=== PATIENT | male | born 1935 | race Caucasian/White ===

== ENCOUNTER 2020-05-19 05:44 | Outpatient (RCR) | payer MEDICARE ==
[~2020-05-19] VITALS: Ht 180 cm; Wt 80.0 kg
[2020-05-19] MEDS ORDERED: TRM50T PO (11:42)
[2020-05-19] MEDS ORDERED: ATEN25TA PO (11:42)
[2020-05-19] MEDS ORDERED: HYDR25TA4 PO (11:42)
[2020-05-19] MEDS ORDERED: LATA7.5D OP (11:42)
[2020-05-19] MEDS ORDERED: ASPI-1238 PO (11:42)
== END 2020-05-19 16:19 | disposition home or self-care (01) ==
LOC: PREOP 05:44
PROVIDERS: ATTEND Surgery
DX: Z01.818 Encounter for other preprocedural examination (principal); Z86.010 Personal history of colon polyps

== ENCOUNTER → 2020-05-22 | Outpatient (CLI) | payer MEDICARE ==
[~2020-05-22] MED LIST: ASPI-1238 PO; ATEN25TA PO; HYDR25TA4 PO; LATA7.5D OP; TRM50T PO
== END ==
LOC: LAB FS 09:38
PROVIDERS: ATTEND Surgery
DX: Z01.812 Encounter for preprocedural laboratory examination (principal); Z20.822 Contact with and (suspected) exposure to COVID-19; Z85.038 Personal history of other malignant neoplasm of large intestine
CPT/HCPCS: 87635

== ENCOUNTER 2020-05-26 07:46 | Day surgery (SDC) | payer MEDICARE ==
[~2020-05-26] VITALS: Ht 180 cm; Wt 80.0 kg
[2020-05-26] MEDS ORDERED: LACTATED RINGERS 1,000 ML IV ONE ×2 (07:52→10:30)
[2020-05-26 08:10] VITALS: BP 160/81
--- NOTE | 2020-05-26 08:20 | Progress Note-Pre Operative ---
Pre-Operative Progress Note H&P Reviewed The H&P was reviewed, patient examined and no changes noted. Time Seen by Provider: 08:15 Date H&P Reviewed: May 26, 2020 Time H&P Reviewed: 08:16 Pre-Operative Diagnosis: Hx of polyps 2017, Hx colon CA 2007 DEAN BASILIO DO May 26, 2020 08:20
[2020-05-26] MEDS ORDERED: PROPOFOL INJECTION 50 ML IV ONE (09:26)
[2020-05-26 10:00] VITALS: BP 141/72
--- NOTE | 2020-05-26 10:04 | Progress Note-Post Operative ---
Post-Operative Progess Note Surgeon (s)/Credit Reporter (s) Surgeon DEAN BASILIO DO Credit Reporter: JOLIE Calzada Pre-Operative Diagnosis Hx of polyps 2017, Hx colon CA 2007 Post-Operative Diagnosis polyps diverticula int hemorrhoids Procedure & Operative Findings Date of Procedure 05/26/20 Procedure Performed/Findings Colon with snare Anesthesia Type IV sedation by TRAINING SPECIALIST Estimated Blood Loss Estimated blood loss (mL): scant Specimens/Packing Specimens Removed sigmoid polyp DEAN BASILIO DO May 26, 2020 10:04
[2020-05-26 10:05] VITALS: BP 140/75
--- NOTE | 2020-05-26 10:05 | Endoscopy Discharge Instruct ---
Endo Procedure/Findings Findings 1.: Polyp 2.: Diverticulosis 3.: Internal Hemorrhoids Discharge Instructions - Activity: You might feel a little sleepy until tomorrow. This is due to the medicine you received to relax you. Until tomorrow, you should: NOT drive a car, operate machinery or power tools. NOT drink any alcoholic beverages. NOT make any important decisions or sign importortant papers. Do not return to work until tomorrow, unless otherwise instructed. Resume previous activities tomorrow. Diet: Start by taking liquids. If you tolerate liquids, advance to solid food. 1.: Colonscopy in 5 years Notify Physician - If you experience excessive bleeding, unusual abdominal pain, fever, or chest pain, contact your doctor immediately. DEAN BASILIO DO May 26, 2020 10:05
[2020-05-26 10:15] VITALS: BP 140/75
[2020-05-26 10:41] VITALS: BP 140/75
--- NOTE | 2020-05-26 11:53 | Anesthesia-General Post-Op ---
MAC Patient Condition Mental Status/LOC: Same as Preop Cardiovascular: Satisfactory Nausea/Vomiting: Absent Respiratory: Satisfactory Pain: Controlled Complications: Absent Post Op Complications Complications None Follow Up Care/Instructions Patient Instructions None needed. Anesthesiology Discharge Order Discharge Order Patient is doing well, no complaints, stable vital signs, no apparent adverse anesthesia problems. No complications reported per nursing. DONNA RAMON CRNA May 26, 2020 11:53
--- NOTE | 2020-05-26 23:21 | OPERATIVE REPORT ---
DATE OF SERVICE: PREOPERATIVE DIAGNOSES: History of colon polyps in 2018 and history of colon cancer in 2008, has not had a colonoscopy since 2018. He was not sure how many polyps or what type was taken out. POSTOPERATIVE DIAGNOSES: Polyps and internal hemorrhoids. PROCEDURE: Colonoscopy with snare polypectomy. SURGEON: Festus Boone DO MACHINE HOOP MAKER: Aaron Alfred MS3. ANESTHESIA: IV sedation by the MOHEL. SPECIMEN: Polyp from the sigmoid colon. BLOOD LOSS: Scant. FLUIDS: Per anesthesia. POSTOPERATIVE CONDITION: Stable. INDICATION FOR PROCEDURE: The patient is an 84-year-old male, who had a history of colon cancer in 2008 and had polyps, most recently in 2018. He was not sure how many or what type removed. He needed a repeat colonoscopy. FINDINGS: The patient had a polyp in the sigmoid colon, but no other obvious pathology. PROCEDURE NOTE: After informed consent was obtained, the patient was brought to the endoscopy suite, placed in bed in left lateral decubitus position. He was administered IV sedation by the MOHEL ,who then monitored his vitals the entire time, heart rate, blood pressure and pulse ox and the scope was inserted, pushed all the way into about 120 cm, able to get to what looked like probable transverse colon and see the anastomosis, took a picture and then slowly withdrew the scope insufflating to look circumferentially at the hurst looking in the transverse colon, then down to the splenic flexure, into the descending colon down in the sigmoid. In the sigmoid, saw small polyp. Elected to do a snare polypectomy of this and then continued down in the rectal vault. Retroflexed in rectal vault, saw some minimal internal hemorrhoids, removed the scope. The patient tolerated the procedure, recovered in endoscopy suite. Job ID: [id number] DocumentID: [id number] Dictated Date: 05/26/2020 14:47:39 Classroom Teacher Date: 05/26/2020 23:20:16 Dictated By: FESTUS BOONE DO
== END 2020-05-26 10:52 | disposition home or self-care (01) ==
LOC: ENDO 07:46
PROVIDERS: ATTEND Surgery
DX: D12.5 Benign neoplasm of sigmoid colon (principal); K64.8 Other hemorrhoids; I10 Essential (primary) hypertension; I25.10 Atherosclerotic heart disease of native coronary artery without angina pectoris; M19.90 Unspecified osteoarthritis, unspecified site; Z79.01 Long term (current) use of anticoagulants; Z79.82 Long term (current) use of aspirin; Z79.899 Other long term (current) drug therapy; Z86.010 Personal history of colon polyps; Z85.038 Personal history of other malignant neoplasm of large intestine; Z87.891 Personal history of nicotine dependence
CPT/HCPCS: 88305

== ENCOUNTER 2022-03-12 16:24 | Emergency (ER) | payer MEDICARE ==
--- NOTE | 2022-03-12 16:34 | ED Cough/URI ---
General Stated Complaint: COLD LIKE SYMPTOMS History of Present Illness Date Seen by Provider: Mar 12, 2022 Time Seen by Provider: 16:31 Initial Comments 86-year-old male brought in by EMS. EMS got called out because the family called [facility] to do a welfare check on him. Patient called his family and told he has had felt good for about 3 days. Patient complains of like cough congestion sore throat. No complaints of a fever. He complains of some chronic sciatica nerve pain that he takes hydrocodone for. Patient has no reports of shortness of breath, nausea or vomiting. Patient has poor hearing so is HPI is somewhat limited along with his review of systems Allergies and Home Medications Allergies Coded Allergies: No Known Drug Allergies (Unverified , 05/26/20) Patient Home Medication List Home Medication List Reviewed: Yes Aspirin (Aspirin EC) 81 Mg Tablet.dr, 81 MG PO DAILY, (Reported) Entered as Reported by: DOM VILLELA on 05/19/20 1142 Atenolol (Atenolol) 25 Mg Tablet, 12.5 MG PO DAILY, (Reported) Entered as Reported by: DOM VILLELA on 05/19/20 1142 Hydrochlorothiazide (Hydrochlorothiazide) 25 Mg Tablet, 12.5 MG PO DAILY, (Reported) Entered as Reported by: DOM VILLELA on 05/19/20 1142 Latanoprost/Pf (Latanoprost 0.005% Eye Drop) 7.5 Ml Drops, 7.5 ML OP HS, (Reported) Entered as Reported by: DOM VILLELA on 05/19/20 1142 Tramadol HCl (Tramadol HCl) 50 Mg Tablet, 50 MG PO QID PRN for PAIN-MODERATE (5- 7), (Reported) Entered as Reported by: DOM VILLELA on 05/19/20 1142 Review of Systems Review of Systems Constitutional: No fever; malaise EENTM: hearing loss, throat pain Respiratory: cough; No short of breath Cardiovascular: No chest pain, No palpitations Gastrointestinal: No abdominal pain, No nausea, No vomiting Genitourinary: no symptoms reported Musculoskeletal: back pain Skin: no symptoms reported Psychiatric/Neurological: No Symptoms Reported Past Oyohaia-Mlhltg-Oijxlc Hx Seasonal Allergies Seasonal Allergies: No Past Medical History Surgeries: Yes (COLON RESECTION) Gallbladder Respiratory: No Currently Using CPAP: No Heart Attack, Hypertension, Irregular Heartbeat Neurological: No Genitourinary: No Gastrointestinal: Yes Gall Bladder Disease Musculoskeletal: Yes Arthritis Endocrine: No HEENT: Yes (LOST PART OF SIGHT IN RIGHT EYE) Cataract Cancer: Yes Skin, Colon Did You Recieve Any Treatments: Yes What Type of Treatment Did You: Chemotherapy, Surgical Intervention Psychosocial: No Integumentary: No Blood Disorders: No Adverse Reaction/Blood Tranf: No Physical Exam Vital Signs - First Documented 03/12/22 16:40 Temp 37.9 Pulse 103 Resp 18 B/P (MAP) 152/76 (101) Pulse Ox 100 O2 Delivery Room Air Capillary Refill : Height: '" Weight: lbs. oz. kg; 24.69 BMI Method: General Appearance: other (Unkept, disheveled) Neck: full range of motion, supple Respiratory: lungs clear, normal breath sounds Cardiovascular: normal peripheral pulses, regular rate, rhythm Gastrointestinal: non tender, soft Extremities: normal range of motion, normal capillary refill Neurologic/Psychiatric: alert, normal mood/affect, oriented x 3 Skin: normal color, warm/dry Progress/Results/Core Measures Suspected Sepsis SIRS Temperature: Pulse: Respiratory Rate: Laboratory Tests 03/12/22 16:30: White Blood Count 8.7 Blood Pressure / Mean: Laboratory Tests 03/12/22 16:30: Creatinine 1.54H, Platelet Count 184, Total Bilirubin 0.3 Results/Orders Lab Results Laboratory Tests Test 03/12/22 16:30 03/12/22 16:53 Range/Units White Blood Count 8.7 4.3-11.0 10^3/uL Red Blood Count 3.72 L 4.30-5.52 10^6/uL Hemoglobin 11.1 L 13.3-17.7 g/dL Hematocrit 34 L 40-54 % Mean Corpuscular Volume 92 80-99 fL Mean Corpuscular Hemoglobin 30 25-34 pg Mean Corpuscular Hemoglobin Concent 33 32-36 g/dL Red Cell Distribution Width 14.1 10.0-14.5 % Platelet Count 184 130-400 10^3/uL Mean Platelet Volume 10.1 9.0-12.2 fL Immature Granulocyte % (Auto) 1 % Neutrophils (%) (Auto) 77 H 42-75 % Lymphocytes (%) (Auto) 14 12-44 % Monocytes (%) (Auto) 9 0-12 % Eosinophils (%) (Auto) 0 0-10 % Basophils (%) (Auto) 0 0-10 % Neutrophils # (Auto) 6.7 1.8-7.8 10^3/uL Lymphocytes # (Auto) 1.2 1.0-4.0 10^3/uL Monocytes # (Auto) 0.8 0.0-1.0 10^3/uL Eosinophils # (Auto) 0.0 0.0-0.3 10^3/uL Basophils # (Auto) 0.0 0.0-0.1 10^3/uL Immature Granulocyte # (Auto) 0.1 0.0-0.1 10^3/uL Sodium Level 134 L 135-145 MMOL/L Potassium Level 4.0 3.6-5.0 MMOL/L Chloride Level 99 98-107 MMOL/L Carbon Dioxide Level 20 L 21-32 MMOL/L Anion Gap 15 H 5-14 MMOL/L Blood Urea Nitrogen 29 H 7-18 MG/DL Creatinine 1.54 H 0.60-1.30 MG/DL Estimat Glomerular Filtration Rate 43 BUN/Creatinine Ratio 19 Glucose Level 113 H 70-105 MG/DL Calcium Level 9.0 8.5-10.1 MG/DL Corrected Calcium 9.0 8.5-10.1 MG/DL Total Bilirubin 0.3 0.1-1.0 MG/DL Aspartate Amino Transf (AST/SGOT) 24 5-34 U/L Alanine Aminotransferase (ALT/SGPT) 12 0-55 U/L Alkaline Phosphatase 72 40-136 U/L C-Reactive Protein 0.87 H <0.50 MG/DL Total Protein 7.0 6.4-8.2 GM/DL Albumin 4.0 3.2-4.5 GM/DL Influenza Type A (RT-PCR) Not Detected Not Detecte Influenza Type B (RT-PCR) Not Detected Not Detecte SARS-CoV-2 RNA (RT-PCR) Detected H Not Detecte My Orders Orders - ANGELINA AMBROSE DO Cbc With Automated Diff (03/12/22 16:34) Comprehensive Metabolic Panel (03/12/22 16:34) Ua Culture If Indicated (03/12/22 16:34) Influenza A And B By Pcr (03/12/22 16:34) Crp Fs (03/12/22 16:34) Covid 19 Inhouse Test (03/12/22 16:34) Chest Pa/Lat (2 View) (03/12/22 16:34) Lactated Ringers (Lr 1000 Ml Iv Solution (03/12/22 17:10) Vital Signs/I&O 03/12/22 16:40 Temp 37.9 Pulse 103 Resp 18 B/P (MAP) 152/76 (101) Pulse Ox 100 O2 Delivery Room Air Capillary Refill : Progress Note : Progress Note Patient is positive for COVID. Patient's physical exam and vitals are stable. Patient with normal chest x-ray and oxygen is 100%. Patient will be given a prescription for Paxlovid. Encouraged him to drink plenty of fluids. Tylenol ibuprofen as needed for fever and chills. Patient stable and discharged home Departure Impression Primary Impression: COVID-19 Disposition: 01 HOME, SELF-CARE Condition: Stable Departure-Patient Inst. Referrals: VITO GIBSON MD (PCP/Family) Primary Care Physician Patient Instructions: COVID-19 Home Care/Discharge Add. Discharge Instructions: Ibuprofen as needed for body aches and pain, I encourage you to drink plenty of fluids. Return to the ER as needed. Follow-up with your primary care provider Tuesday or Tuesday for recheck of your symptoms Scripts Nirmatrelvir/Ritonavir (Paxlovid 300-100 mg Pack (Eua)) 300 Mg (150 Mg X 2)-100 Mg Tab.ds.pk 1 EACH PO PD, #1 PKG Prov: ANGELINA AMBROSE DO 03/12/22 ANGELINA AMBROSE DO Mar 12, 2022 16:34
[2022-03-12 16:40] LABS: BASOPHILS % (AUTO) 0 % (0-10); EOSINOPHILS % (AUTO) 0 % (0-10); HEMATOCRIT 34 % (40-54); HEMOGLOBIN 11.1 g/dL (13.3-17.7); LYMPHOCYTES # (AUTO) 1.2 10^3/uL (1.0-4.0); LYMPHOCYTES % (AUTO) 14 % (12-44); MEAN CORPUSCULAR HEMOGLOBIN 30 pg (25-34); MEAN CORPUSCULAR HGB CONC 33 g/dL (32-36); MEAN CORPUSCULAR VOLUME 92 fL (80-99); MEAN PLATELET VOLUME 10.1 fL (9.0-12.2); MONOCYTES # (AUTO) 0.8 10^3/uL (0.0-1.0); MONOCYTES % (AUTO) 9 % (0-12); NEUTROPHILS # (AUTO) 6.7 10^3/uL (1.8-7.8); NEUTROPHILS % (AUTO) 77 % (42-75); PLATELET COUNT 184 10^3/uL (130-400); WHITE BLOOD COUNT 8.7 10^3/uL (4.3-11.0)
[2022-03-12 17:01] LABS: BILIRUBIN,TOTAL 0.3 MG/DL (0.1-1.0); CREATININE SERUM 1.54 MG/DL (0.60-1.30)
--- NOTE | 2022-03-12 17:04 | Diagnostic Imaging Report ---
EXAMINATION: Chest 2 view. HISTORY: Cough. COMPARISON: None available. FINDINGS: The lungs are clear without edema or pneumonia. No pleural effusion or pneumothorax. Heart size is normal. There is a calcified left hilar lymph node. IMPRESSION: Clear lungs. Dictated by: Dictated on workstation # [id number]
[2022-03-12] MEDS ORDERED: LACTATED RINGERS 1,000 ML IV STA (17:10)
[2022-03-12] MEDS ORDERED: NIRM1TAB PO (17:38)
[2022-03-12] MEDS ORDERED: KETOROLAC 30 MG/ML VIAL IVP STA (17:39)
[2022-03-12 17:58] VITALS: BP 150/72
== END 2022-03-12 17:54 | disposition home or self-care (01) ==
LOC: EDUNIT# 16:24 → ER FS 16:25
DX: U07.1 COVID-19 (principal); R50.9 Fever, unspecified; Z28.310 Unvaccinated for COVID-19
CPT/HCPCS: 36415; 71046; 80053; 85025; 86141; 87636